=== PATIENT | female | born 1945 | race Caucasian/White ===

== ENCOUNTER 2023-01-08 00:32 | Emergency (ER) | payer MEDICARE ==
[~2023-01-08] VITALS: Ht 170.2 cm; Wt 84.1 kg
[2023-01-08 00:42] VITALS: TEMP 97.9
[2023-01-08] MEDS ORDERED: LORazepam 2 mg/ml vial IV ONE (01:10)
[2023-01-08] MEDS ORDERED: diltiazem 5mg/ml 5ml inj. IV ONE (01:10)
[2023-01-08] MEDS ORDERED: digoxin 250mcg/ml 2ml ampule IV ONE (01:10)
[2023-01-08 01:26] LABS: BASOPHILS # (AUTO) 0.1 X10'3 (0-0.2); BASOPHILS % (AUTO) 0.8 % (0-1); EOSINOPHILS # (AUTO) 0.1 X10'3 (0-0.9); EOSINOPHILS % (AUTO) 2.1 % (0-6); HEMATOCRIT 44.6 % (35.0-45.0); HEMOGLOBIN 15.4 g/dl (12.0-16.0); LYMPHOCYTES # (AUTO) 2.1 X10'3 (1.1-4.8); LYMPHOCYTES % (AUTO) 31.6 % (21-51); MEAN CORPUSCULAR HEMOGLOBIN 32.4 PG (27.0-31.0); MEAN CORPUSCULAR HGB CONC 34.5 g/dL (33.0-36.5); MEAN PLATELET VOLUME 8.7 FL (7.4-10.4); MONOCYTES # (AUTO) 0.8 X10'3 (0-0.9); MONOCYTES % (AUTO) 12.3 % (2-12); NEUTROPHILS # (AUTO) 3.5 X10'3 (1.8-7.7); NEUTROPHILS % (AUTO) 53.2 % (42-75); PLATELET COUNT 210 X10'3 (140-440); RED BLOOD COUNT 4.74 X10'6 (4.20-5.60); RED CELL DISTRIBUTION WIDTH 12.7 % (11.5-14.5); WHITE BLOOD COUNT 6.5 X10'3 (4.5-11.0)
[2023-01-08 01:29] LABS: ALANINE AMINOTRANSFERASE 28 U/L (12-78); ALBUMIN 3.9 G/DL (3.4-5.0); ALBUMIN/GLOBULIN RATIO 1.3 (1.1-1.5); ALKALINE PHOSPHATASE 67 IU/L (46-116); ANION GAP 11 (8-16); ASPARTATE AMINO TRANSFERASE 24 U/L (10-37); BILIRUBIN,TOTAL 0.3 MG/DL (0.1-1.0); BLOOD UREA NITROGEN 23 MG/DL (7-18); CALCIUM 9.3 MG/DL (8.5-10.1); CHLORIDE 105 MMOL/L (99-107); CREATININE 0.82 MG/DL (0.40-0.90); GLUCOSE 130 MG/DL (70-104); POTASSIUM 4.1 MMOL/L (3.5-5.1); SODIUM 141 MMOL/L (135-145); TOTAL CARBON DIOXIDE 25.2 MMOL/L (24-32); TOTAL PROTEIN 6.8 G/DL (6.4-8.2); eGFR 67 ML/MIN
[2023-01-08] MEDS ORDERED: UBID1CAP54 PO (01:36)
[2023-01-08] MEDS ORDERED: OMEG-15 PO (01:36)
[2023-01-08] MEDS ORDERED: GLUC100017 PO (01:36)
[2023-01-08] MEDS ORDERED: AMLO5TAB PO (01:36)
[2023-01-08] MEDS ORDERED: ERGO400T7 (01:36)
[2023-01-08] MEDS ORDERED: LISI40TA13 PO (01:36)
[2023-01-08] MEDS ORDERED: apixaban 5mg tablet PO ONE (01:50)
[2023-01-08] MEDS ORDERED: normal saline 500ml IV soln 500 ML IV ONE (01:55)
[2023-01-08] MEDS ORDERED: APIX5TAB3 PO (02:19)
[2023-01-08] MEDS ORDERED: DILT-88 PO (02:19)
[2023-01-08 02:47] VITALS: BP 106/61; PULSE 79; RESP 16; O2SAT 99
== END 2023-01-08 02:50 | disposition home or self-care (01) ==
LOC: ER 00:33
DX: I48.91 Unspecified atrial fibrillation (principal); Z79.899 Other long term (current) drug therapy; Z79.1 Long term (current) use of non-steroidal anti-inflammatories (NSAID); Z79.2 Long term (current) use of antibiotics
CPT/HCPCS: 36415; 80053; 83735; 83880; 84484; 85025; 93005; 96374; 96375; 99284; J1160; J2060; J3490; J7040